=== PATIENT | female | born 1995 | race Caucasian/White ===

== ENCOUNTER 2017-03-06 21:32 | Observation (INO) | payer MEDICAID ==
[~2017-03-06] VITALS: Ht 170.2 cm; Wt 82.0 kg
[2017-03-06] MEDS ORDERED: ACETAMINOPHEN 325MG TABLET PO ONE (22:00)
[2017-03-06 23:20] VITALS: BP 126/70
[2017-03-06 23:56] LABS: BASOPHILS % 0.5 % (0.0-2.0); EOSINOPHILS % 1.3 % (0.0-5.0); HEMOGLOBIN. 11.1 g/dL (12.0-16.0); LYMPHOCYTES % 21.1 % (20.0-50.0); MEAN CORPUSCULAR HEMOGLOBIN 28.9 pg (28.0-32.0); MEAN CORPUSCULAR VOLUME 85.6 fL (81.0-99.0); MEAN PLATELET VOLUME 9.6 fl (7.4-10.4); MONOCYTES % 7.1 % (2.0-8.0); PLATELET 207 x1000/uL (130-400); RED BLOOD CELL COUNT 3.85 mill/uL (4.2-5.4); RED CELL DISTRIBUTION WIDTH 13.9 % (11.6-14.6)
[2017-03-07] LABS: CHLORIDE 103 mEq/L (98-107)
[2017-03-07 00:17] LABS: CARBON DIOXIDE 25 mEq/L (21-32)
[2017-03-07 00:26] LABS: B-HCG QUANTITATIVE 17429 mIU/mL (<3)
[2017-03-07] MEDS ORDERED: PREN-88 PO (01:56)
[2017-03-07] MEDS ORDERED: IRON-1 PO (01:56)
[2017-03-07] MEDS ORDERED: LACTATED RINGERS 1,000 ML IV SCH (02:30)
[2017-03-07 03:26] LABS: CLARITY URINE CLOUDY (CLEAR); COLOR URINE YELLOW (YELLOW); GLUCOSE URINE NEGATIVE (NEGATIVE); KETONES URINE NEGATIVE (NEGATIVE); LEUKOCYTE ESTERASE URINE 3+ (NEGATIVE); NITRITE URINE NEGATIVE (NEGATIVE); OCCULT BLOOD URINE 1+ (NEGATIVE); PROTEIN URINE NEGATIVE (NEGATIVE); SPECIFIC GRAVITY URINE 1.013 (1.005-1.030); UROBILINOGEN URINE 0.2 E.U./dL (0.2-1.0)
[2017-03-07] MEDS ORDERED: CITRIC ACID/SODIUM CITRATE SOLN 30ML UDC PO ONE (04:45)
[2017-03-07] MEDS ORDERED: CEFAZOLIN 1000MG PREMIX 50 ML IV SCH (06:00)
== END 2017-03-07 05:18 | disposition home or self-care (01) ==
LOC: EDBD 21:54 → ER 21:54 → L&D 03-07 00:18
PROVIDERS: ADMIT Obstetrics & Gynecology; ATTEND Obstetrics & Gynecology
DX: O20.0 Threatened abortion (principal); Z3A.20 20 weeks gestation of pregnancy
CPT/HCPCS: 36415; 76830; 76856; 80048; 81001; 84702; 85025; 86850; 86900; 86901; 96361; 96365; 99281; G0378; J0690; J7120; 96360; 96366

== ENCOUNTER 2017-04-17 23:07 | Observation (INO) | payer MEDICAID ==
[~2017-04-17] VITALS: Ht 160 cm; Wt 79.4 kg
[~2017-04-17 23:07] MED LIST: IRON-1 PO; PREN-88 PO
[2017-04-17] MEDS ORDERED: DEXT15SY3 PO (23:17)
[2017-04-17] MEDS ORDERED: CYAN10009 PO (23:17)
== END 2017-04-18 | disposition home or self-care (01) ==
LOC: L&D 23:07
PROVIDERS: ADMIT Obstetrics & Gynecology; ATTEND Obstetrics & Gynecology
DX: O36.8120 Decreased fetal movements, second trimester, not applicable or unspecified (principal); O26.892 Other specified pregnancy related conditions, second trimester; R10.9 Unspecified abdominal pain; Z3A.26 26 weeks gestation of pregnancy
CPT/HCPCS: 99281; G0378

== ENCOUNTER 2017-07-26 07:21 | Observation (INO) | payer MEDICAID ==
[~2017-07-26 07:21] MED LIST changes: +CYAN10009 PO; +DEXT15SY3 PO
== END 2017-07-26 08:25 | disposition home or self-care (01) ==
LOC: L&D 07:21
PROVIDERS: ADMIT Obstetrics & Gynecology; ATTEND Obstetrics & Gynecology
DX: O26.893 Other specified pregnancy related conditions, third trimester (principal); R10.30 Lower abdominal pain, unspecified; M54.5 Low back pain; Z3A.39 39 weeks gestation of pregnancy
CPT/HCPCS: 99281; G0378

== ENCOUNTER 2020-06-30 19:07 | Emergency (ER) | payer MEDICAID ==
[~2020-06-30] VITALS: Ht 172.7 cm; Wt 90.0 kg
[~2020-06-30 19:07] MED LIST changes: +CYAN-50 PO; -CYAN10009 PO
[2020-06-30 19:12] VITALS: BP 168/92
[2020-06-30] MEDS ORDERED: ACETAMINOPHEN 325MG TABLET PO ONE (20:00)
== END 2020-06-30 20:51 | disposition home or self-care (01) ==
LOC: ER 19:07
DX: S80.01XA Contusion of right knee, initial encounter (principal); J45.909 Unspecified asthma, uncomplicated; Z79.899 Other long term (current) drug therapy; X58.XXXA Exposure to other specified factors, initial encounter; Y93.89 Activity, other specified; Y92.89 Other specified places as the place of occurrence of the external cause; Y99.8 Other external cause status
CPT/HCPCS: 99282

== ENCOUNTER 2021-05-08 16:57 | Inpatient (IN) | payer MEDICAID, OTHER ==
[~2021-05-08] VITALS: Ht 160 cm; Wt 90.7 kg
[2021-05-08] MEDS ORDERED: MISOPROSTOL 100MCG TABLET VG SCH (17:15)
[2021-05-08] MEDS ORDERED: BUTORPHANOL TARTRATE 2 MG/ML VIAL IV PRN (17:15)
[2021-05-08] MEDS ORDERED: CARBOPROST TROMETHAMINE 250 MCG/ML AMPUL IM PRN (17:15)
[2021-05-08] MEDS ORDERED: DEXT 5%/LR + PITOCIN 20UNITS/L 1,000 ML IV SCH ×2 (17:15→20:15)
[2021-05-08] MEDS ORDERED: NALOXONE HCL 0.4 MG/ML 1ML VIAL IM PRN (17:15)
[2021-05-08] MEDS ORDERED: METHYLERGONOVINE MALEATE 0.2 MG/ML IM PRN (17:15)
[2021-05-08] MEDS ORDERED: AMPICILLIN 2GM in NS 100ML 100 ML IV SCH (17:30)
[2021-05-08] MEDS: LACTATED RINGERS 1,000 ML IV SCH ×2 (17:37→18:30)
[2021-05-08 17:47] LABS: BASOPHILS % 0.4 % (0.0-2.0); EOSINOPHILS % 1.3 % (0.0-5.0); HEMATOCRIT. 37.2 % (36.0-48.0); HEMOGLOBIN. 12.1 g/dL (12.0-16.0); LYMPHOCYTES % 29.3 % (20.0-50.0); MEAN CORPUSCULAR HEMOGLOBIN 27.4 pg (28.0-32.0); MEAN CORPUSCULAR VOLUME 83.9 fL (81.0-99.0); MEAN PLATELET VOLUME 11.4 fl (7.4-10.4); MONOCYTES % 8.2 % (2.0-8.0); NEUTROPHILS % 60.8 % (40.0-76.0); PLATELET 175 x1000/uL (130-400); RED BLOOD CELL COUNT 4.43 mill/uL (4.2-5.4); RED CELL DISTRIBUTION WIDTH 14.8 % (11.6-14.6)
[2021-05-08 17:58] LABS: INR 0.9; PARTIAL THROMBOPLASTIN TIME 26.1 sec (23.4-31.0); PROTHROMBIN TIME 9.8 sec (9.6-11.0)
[2021-05-08 18:14] LABS: CLARITY URINE CLEAR (CLEAR); COLOR URINE YELLOW (YELLOW); KETONES URINE NEGATIVE (NEGATIVE); LEUKOCYTE ESTERASE URINE NEGATIVE (NEGATIVE); NITRITE URINE NEGATIVE (NEGATIVE); OCCULT BLOOD URINE TRACE (NEGATIVE); PROTEIN URINE NEGATIVE (NEGATIVE); SPECIFIC GRAVITY URINE 1.009 (1.005-1.030); UROBILINOGEN URINE 0.2 E.U./dL (0.2-1.0)
[2021-05-08 18:26] LABS: *BENZODIAZEPINES SCREEN URINE NEGATIVE (NEGATIVE); *COCAINE SCREEN URINE NEGATIVE (NEGATIVE)
[2021-05-08 18:27] LABS: METHADONE URINE SCREEN NEGATIVE (NEGATIVE)
[2021-05-08 18:28] LABS: *AMPHETAMINES SCREEN URINE NEGATIVE (NEGATIVE); *BARBITURATES SCREEN URINE NEGATIVE (NEGATIVE); OPIATES URINE SCREEN NEGATIVE (NEGATIVE); PHENCYCLIDINE URINE SCREEN NEGATIVE (NEGATIVE)
[2021-05-08 18:31] LABS: CANNABINOID URINE SCREEN PRESUMTIVE POSITIVE (NEGATIVE)
[2021-05-08 18:35] LABS: HEPATITIS B SURFACE ANTIGEN NEGATIVE
[2021-05-08] MEDS ORDERED: ROPIVACAINE HCL/PF EPIDURAL 200 ML EPI ONE (18:49)
[2021-05-08] MEDS ORDERED: ROPIVACAINE HCL/PF EPIDURAL 200 ML EPI SCH (20:15)
[2021-05-08] MEDS ORDERED: RHO(D) IMMUNE GLOBULIN 300 MCG/SYR IM PRN (20:15)
[2021-05-08] MEDS ORDERED: IBUPROFEN 400MG TABLET PO PRN (20:15)
[2021-05-08] MEDS ORDERED: BISACODYL 10MG SUPP PR PRN (20:15)
[2021-05-08] MEDS: IBUPROFEN 800MG TABLET PO PRN (20:57)
[2021-05-08 22:10] VITALS: BP 110/56
[2021-05-08 22:40] VITALS: BP 110/60
[2021-05-08 23:10] VITALS: BP 111/59
[2021-05-08] MEDS ORDERED: DEXT 5%/LR + PITOCIN 20UNITS/L 0 ML IV ONE (23:10)
[2021-05-08] MEDS ORDERED: AMPICILLIN 1,000 MG in SODIUM CHLORIDE 0.9% 50 ML IV SCH (23:30)
[2021-05-09 03:30] VITALS: BP 110/64
[2021-05-09] MEDS ORDERED: TETANUS, DIPHTHERIA, PERTUSSIS VAC/PF 0.5ML (>10YR OLD) IM ONE (06:00)
[2021-05-09 07:26] LABS: BASOPHILS % 0.3 % (0.0-2.0); EOSINOPHILS % 0.4 % (0.0-5.0); HEMATOCRIT. 34.1 % (36.0-48.0); HEMOGLOBIN. 11.4 g/dL (12.0-16.0); LYMPHOCYTES % 24.9 % (20.0-50.0); MEAN CORPUSCULAR HEMOGLOBIN 27.9 pg (28.0-32.0); MEAN CORPUSCULAR VOLUME 83.6 fL (81.0-99.0); MEAN PLATELET VOLUME 11.4 fl (7.4-10.4); MONOCYTES % 6.4 % (2.0-8.0); PLATELET 152 x1000/uL (130-400); RED BLOOD CELL COUNT 4.08 mill/uL (4.2-5.4); RED CELL DISTRIBUTION WIDTH 14.8 % (11.6-14.6)
[2021-05-09 08:00] VITALS: BP 114/68
[2021-05-09] MEDS ORDERED: PRENATAL VIT/FE FUMARATE/FA TABLET PO SCH (09:00)
[2021-05-09] MEDS: IBUPROFEN 800MG TABLET PO PRN (09:29)
[2021-05-09] MEDS: FERROUS SULFATE 325MG TABLET PO SCH (09:29)
[2021-05-09] MEDS ORDERED: INFLUENZA VACCINE 05/PF 0.5 ML SYRINGE IM ONE (10:00)
[2021-05-09 15:50] VITALS: BP 90/40
[2021-05-09 22:00] VITALS: BP 114/74
[2021-05-10 05:45] VITALS: BP 112/71
[2021-05-10] MEDS ORDERED: IBUP-2030 PO (06:41)
[2021-05-10 07:40] VITALS: BP 102/54
[2021-05-10] MEDS: FERROUS SULFATE 325MG TABLET PO SCH (07:58)
[2021-05-10] MEDS ORDERED: MEDROXYPROGESTERONE ACETATE 150MG/ML VIAL IM ONE (08:00)
[2021-05-10 11:58] LABS: HEMOGLOBIN. 12.1 g/dL (12.0-16.0)
[2021-05-10 12:02] LABS: BASOPHILS % 0.4 % (0.0-2.0); LYMPHOCYTES % 22.9 % (20.0-50.0); MEAN CORPUSCULAR HEMOGLOBIN 27.6 pg (28.0-32.0); MEAN CORPUSCULAR VOLUME 84.2 fL (81.0-99.0); MONOCYTES % 4.4 % (2.0-8.0); NEUTROPHILS % 71.3 % (40.0-76.0); PLATELET 177 x1000/uL (130-400); RED BLOOD CELL COUNT 4.39 mill/uL (4.2-5.4); RED CELL DISTRIBUTION WIDTH 15.2 % (11.6-14.6)
[2021-05-17 19:06] LABS: CANNABINOID CONFIRMATION URINE Positive (.)
== END 2021-05-10 12:30 | disposition home or self-care (01) | DRG 560 ==
LOC: 8 EST LDRP 16:57 → OBSVTOIN 16:57 → 8EST 22:21
PROVIDERS: ADMIT Obstetrics & Gynecology; ATTEND Obstetrics & Gynecology
PROC: 10E0XZZ Delivery of Products of Conception, External Approach (ICD-10-PCS; principal; 2021-05-08)
PROC: 3E0R3BZ Introduction of Anesthetic Agent into Spinal Canal, Percutaneous Approach (ICD-10-PCS; 2021-05-08)
PROC: 00HU33Z Insertion of Infusion Device into Spinal Canal, Percutaneous Approach (ICD-10-PCS; 2021-05-08)
DX: O60.14X0 Preterm labor third trimester with preterm delivery third trimester, not applicable or unspecified (principal); Z37.0 Single live birth; O41.03X0 Oligohydramnios, third trimester, not applicable or unspecified; O99.344 Other mental disorders complicating childbirth; O99.324 Drug use complicating childbirth; O42.913 Preterm premature rupture of membranes, unspecified as to length of time between rupture and onset of labor, third trimester; O69.81X0 Labor and delivery complicated by cord around neck, without compression, not applicable or unspecified; Z20.822 Contact with and (suspected) exposure to COVID-19; F43.10 Post-traumatic stress disorder, unspecified; F12.10 Cannabis abuse, uncomplicated; F32.A Depression, unspecified; O90.81 Anemia of the puerperium; Z3A.35 35 weeks gestation of pregnancy; Z85.528 Personal history of other malignant neoplasm of kidney
CPT/HCPCS: 36415; 76805; 80305; 80349; 81003; 85025; 86592; 86703; 86762; 86850; 86900; 87340; 87426; 88307; 90686; 90715; J0290; J1050; J2590; J2795; J7120; A4315